=== PATIENT | female | born 1955 | race Hispanic/Latino ===

== ENCOUNTER → 2020-02-24 | Day surgery (SDC) | payer MEDICARE, OTHER ==
--- NOTE | 2020-02-20 14:02 | Diagnostic Imaging Report ---
EXAMINATION: CHEST 2 VIEWS INDICATION: Pre-operative COMPARISON: Chest radiograph 03/04/2016 FINDINGS: LINES/TUBES:None LUNGS:The lungs are well-inflated. No focal consolidation or pulmonary edema. PLEURA:No pleural effusion or pneumothorax. MEDIASTINUM:The cardiomediastinal silhouette appears normal in size and shape. BONES/SOFT TISSUES:No acute osseous injury. Dextroconvex curvature of the thoracic spine. Partially visualized cervical spine fusion hardware. ABDOMEN:No free air under the diaphragm. IMPRESSION: No focal pneumonia or pulmonary edema. Signed by: Epifanio Kay MD on 02/20/2020 1:59 PM
[2020-02-20 14:09] LABS: BASOPHILS # (AUTO) 0.1 (0.0-0.1); BASOPHILS % 0.6 % (0.0-1.0); EOSINOPHILS # (AUTO) 0.1 (0.0-0.4); EOSINOPHILS % 1.5 % (0.0-6.0); HEMATOCRIT 41.6 % (34.2-44.1); HEMOGLOBIN 13.2 g/dL (12.0-16.0); LYMPHOCYTES # (AUTO) 2.8 (1.0-3.2); LYMPHOCYTES % 30.7 % (18.0-39.1); MEAN CORPUSCULAR HEMOGLOBIN 29.8 pg (28-32); MEAN CORPUSCULAR HGB CONC 31.7 g/dL (31-35); MEAN CORPUSCULAR VOLUME 93.9 fL (81-99); MONOCYTES # (AUTO) 0.5 (0.2-0.8); NEUTROPHILS # (AUTO) 5.5 (2.1-6.9); PLATELET COUNT 229 x10e3/uL (140-360); RED BLOOD COUNT 4.43 x10e6/uL (3.6-5.1); RED CELL DISTRIBUTION WIDTH 13.2 % (11.7-14.4)
[2020-02-20 14:30] LABS: ANION GAP 15.8 mmol/L (8-16); BLOOD UREA NITROGEN 10 mg/dL (7-26); BUN/CREATININE RATIO 15 (6-25); CALCIUM 10.1 mg/dL (8.4-10.2); CARBON DIOXIDE 26 mmol/L (22-29); CHLORIDE 100 mmol/L (98-107); CREATININE, SERUM 0.68 mg/dL (0.57-1.11); EST GLOMERULAR FILTRATION RATE > 60 ML/MIN (60-); GLUCOSE 105 mg/dL (74-118); POTASSIUM 3.8 mmol/L (3.5-5.1); SODIUM 138 mmol/L (136-145)
[~2020-02-24] MED LIST: ALLERGY DROPS PO; ASPIR-LOW81 MG PO; ASPIRIN81 M2 PO; ATORVASTATIN CA10 MG PO; BUPIVACAINE HCL 0.5% INJ 30 ML VIAL INJ ONE; BUSPIRONE HCL30 MG PO; CALTRATE 600 W1 EACH PO; CEFAZOLIN SOD 1 GM/NS 50ML 50 ML IV ONE; CO Q-10200 MG PO; CULTURELLE CAP1 EACH; CYMBALTA30 MG PO; DULOXETINE PO; FENTANYL CITRATE/PF 100MCG/2 ML INJ ONE; FLONASE SENSIM5.9 ML; HUMALOG100 UNIT/1 SC; LANTUS SOL300 UNIT/3 SQ; LEVOTHYROXINE PO; LEVOTHYROXINE75 MCG PO; LIDOCAINE HCL 2% LOCAL INJ 5 ML SDV VIAL INJ ONE; MIDAZOLAM HCL 2 MG/2 ML VIAL ONE; MULTI-VITAMIN1 EACH PO; NOVOLOG MI100 UNITS/ SQ; ONDANSETRON HCL INJ 2MG/ML 2ML 2 MG/ML VIAL ONE; OZEMPIC1 MG/0.75 SC; PANTOPRAZOLE SO40 MG PO; POLYETHYLENE GL17 GM PO; PROBIOTIC & AC1 EACH PO; PROPOFOL IV EMULSION 10 MG/ML 20 ML VIAL ONE; SEVOFLURANE INHAL SOLN 250 ML PEN BTL ONE; SINGULAR; TRESIBA100 UNIT/1 SC; VASCEPA1 GM PO; VITAMIN B12; Z.0.DEXILANT60 MG PO; Z.0.LEXAPRO10 MG PO; Z.0.LIPITOR80 MG PO; Z.0.LISINOPRIL10 MG PO; Z.0.LOVAZA1 GM PO; Z.0.SINGULAIR10 MG PO; Z.0.VICTOZA 3-0.6 MG SQ; Z.0.XYZAL5 MG PO; Z.2.METFORMIN HCL500 PO; [UNRECOGNIZED DRUG - CODE] PO; [UNRECOGNIZED DRUG - OTHER] NS
[2020-02-24 08:15] VITALS: BP 124/65
--- NOTE | 2020-02-24 09:01 | Operative Report ---
DATE OF PROCEDURE: 02/24/2020 SURGEON: Reinaldo Elliott MD CELL BIOLOGIST: Varun Chavez PA-C PREOPERATIVE DIAGNOSIS: Right 3rd and 4th trigger finger. POSTOPERATIVE DIAGNOSIS: Right 3rd and 4th trigger finger. PROCEDURE: Release right 3rd and 4th trigger finger. INDICATIONS: The patient is a 64-year-old lady who has clinic signs and symptoms consistent with right 3rd and 4th trigger finger. She has failed conservative management and would like to proceed with a surgical release. The risks and benefits of the procedure have been explained. She has had this done on different digits. She is familiar with the process. She states she understands and wishes to proceed. PROCEDURE IN DETAIL: The patient was brought to the operating room and placed under general anesthetic. Her right upper extremity was prepped and draped in a sterile manner. She received prophylactic antibiotics. A preoperative time-out was performed. The extremity was exsanguinated and a proximal tourniquet was inflated to 250 mmHg. Incisions were made in line with the distal palmar crease and the 3rd and 4th fingers. The A1 franky was carefully exposed in each location. The franky was completely released. The tendons were retracted from the wound and noted to have full excursion. The wounds were irrigated and closed with two interrupted nylon stitches in each incision. A 4 mL of 0.5% Marcaine without epinephrine was injected for a local block. The patient was placed into a sterile bandage. She was extubated and transported to the recovery room in stable condition. There was no blood loss and all needle and sponge counts were correct. Reinaldo Elliott MD DR/HALEY /[id number]
== END | disposition home or self-care (01) ==
LOC: OR 05:04 → EDSTATUS 07:00
PROVIDERS: ATTEND Specialist
DX: M65.331 Trigger finger, right middle finger (principal); M65.341 Trigger finger, right ring finger; E11.9 Type 2 diabetes mellitus without complications; I10 Essential (primary) hypertension; E78.00 Pure hypercholesterolemia, unspecified; M19.90 Unspecified osteoarthritis, unspecified site; E03.9 Hypothyroidism, unspecified; K21.9 Gastro-esophageal reflux disease without esophagitis; F41.9 Anxiety disorder, unspecified; Z88.2 Allergy status to sulfonamides; Z01.812 Encounter for preprocedural laboratory examination; Z01.818 Encounter for other preprocedural examination; Z11.59 Encounter for screening for other viral diseases; Z79.4 Long term (current) use of insulin; Z79.82 Long term (current) use of aspirin; Z79.84 Long term (current) use of oral hypoglycemic drugs
CPT/HCPCS: 26055 ×2; 36415 ×2; 71046; 80048; 82948; 85025; 87635; J0690; J2001; J2250; J2405; J2704; J3010

== ENCOUNTER → 2022-03-22 | Day surgery (SDC) | payer MEDICARE ==
[~2022-03-22] MED LIST changes: +BENEFIBER1 EAC1 PO; -BUPIVACAINE HCL 0.5% INJ 30 ML VIAL INJ ONE; -CEFAZOLIN SOD 1 GM/NS 50ML 50 ML IV ONE; +DEXAMETHASONE SOD PHOS INJ 4 MG/ML SDV ONE; +EPINEPHRINE 1 MG/ML 30ML VIAL ONE; +EPINEPHRINE HCL 1:1000 1ML 1 MG/ML AMP ONE; +GLYCOPYRROLATE INJ 0.2 MG/ML VIAL ONE; +KETOROLAC TROMETHAMINE 30 MG/ML VIAL ONE; +NEOSTIGMINE 1 MG/ML 10ML VIAL ONE; +NOVOLOG100 UNIT/1 SC; +PHENYLEPHRINE HCL 1% 10 MG/ML VIAL ONE; +POVIDONE IODINE 0.05% 0.05 % ML PO ONE; +ROCURONIUM BROMIDE 10 MG/ML 5ML VIAL IV ONE; +ROPIVACAINE 0.5% 5 MG/ML 30 ML SDV ONE; +SERTRALINE HCL50 MG PO
[2022-03-22 07:03] LABS: BASOPHILS % 0.5 % (0.0-1.0); EOSINOPHILS # (AUTO) 0.2 (0.0-0.4); EOSINOPHILS % 2.4 % (0.0-6.0); HEMATOCRIT 38.8 % (34.2-44.1); HEMOGLOBIN 12.2 g/dL (12.0-16.0); LYMPHOCYTES # (AUTO) 1.7 (1.0-3.2); LYMPHOCYTES % 27.4 % (18.0-39.1); MEAN CORPUSCULAR HEMOGLOBIN 29.8 pg (28-32); MEAN CORPUSCULAR HGB CONC 31.4 g/dL (31-35); MEAN CORPUSCULAR VOLUME 94.9 fL (81-99); MONOCYTES # (AUTO) 0.4 (0.2-0.8); MONOCYTES % 6.5 % (4.4-11.3); NEUTROPHILS # (AUTO) 3.9 (2.1-6.9); NEUTROPHILS % 62.9 % (38.7-80.0); PLATELET COUNT 213 x10e3/uL (140-360); RED BLOOD COUNT 4.09 x10e6/uL (3.6-5.1); RED CELL DISTRIBUTION WIDTH 14.7 % (11.7-14.4)
[2022-03-22 07:33] LABS: ANION GAP 14.4 mmol/L (8-16); BLOOD UREA NITROGEN 15 mg/dL (7-26); BUN/CREATININE RATIO 18 (6-25); CALCIUM 9.5 mg/dL (8.4-10.2); CARBON DIOXIDE 30 mmol/L (22-29); CHLORIDE 105 mmol/L (98-107); CREATININE, SERUM 0.84 mg/dL (0.57-1.11); GLUCOSE 142 mg/dL (74-118); POTASSIUM 4.4 mmol/L (3.5-5.1); SODIUM 145 mmol/L (136-145)
[2022-03-22 14:00] VITALS: BP 124/55
== END | disposition home or self-care (01) ==
LOC: OR 06:38
PROVIDERS: ATTEND Specialist
DX: M75.121 Complete rotator cuff tear or rupture of right shoulder, not specified as traumatic (principal); I10 Essential (primary) hypertension; J40 Bronchitis, not specified as acute or chronic; E11.9 Type 2 diabetes mellitus without complications; E03.9 Hypothyroidism, unspecified; K21.9 Gastro-esophageal reflux disease without esophagitis; Z88.6 Allergy status to analgesic agent; Z88.2 Allergy status to sulfonamides; Z20.822 Contact with and (suspected) exposure to COVID-19; Z79.4 Long term (current) use of insulin; Z79.82 Long term (current) use of aspirin; Z79.899 Other long term (current) drug therapy
CPT/HCPCS: 0223U; 29827; 36415; 71046; 80048; 82948; 85025; 93005; C1713; J0171; J0690; J1100; J1885; J2001; J2250; J2370; J2405; J2704; J2710; J2795; J3010